=== PATIENT | male | born 1970 | race Caucasian/White ===

== ENCOUNTER 2017-10-12 18:09 | Emergency (ER) | payer OTHER ==
[~2017-10-12] VITALS: Ht 180.3 cm; Wt 80.7 kg
--- NOTE | ~2017-10-12 | EKG ---
[place] [id number] [facility] [place] [address] ELECTROCARDIOGRAM REPORT Name: GINNY MARTIN Room #: DEP Clem#: [id number] Admission: 10/12/17 Attend Phys: Discharge: 10/12/17 Date of : 68 Report #: [id number] THIS REPORT FOR: //name// [facility] ED Test Date: 2017-10-12 Test Time: 19:00:31 Pat Name: GINNY MARTIN Department: Room: Gender: M Senior Asset Manager: [id number] : 1970 Requested By: Charlie Davies Order Number: [id number] MD: Ari Salas Measurements Intervals [place] Rate: 102 P: 47 [place]: 169 QRS: -51 QRSD: 95 T: 29 QT: 353 QTc: 460 Interpretive Statements Sinus tachycardia Left anterior fascicular block No previous ECG available for comparison Electronically Signed On 10-13-2017 9:11:40 EXPERIMENTAL ELECTRONICS DEVELOPER by Ari Salas [email or web address] <ELECTRONICALLY SIGNED> By: Ari Salas MD, [facility] 10/13/17 0911 190 99 Ari Salas MD, FACC /EPI
[2017-10-12 19:17] LABS: ABSOLUTE NEUTROPHILS 5.8 thou/uL (1.4-8.2); BASOPHILS 0.6 % (0.0-2.0); EOSINOPHILS 1.5 % (0.0-3.0); HEMATOCRIT 41.5 % (42.0-52.0); HEMOGLOBIN 14.3 gm/dL (14.0-18.0); LYMPHOCYTES 19.2 % (24.0-44.0); MANUAL DIFF NO; MCH 30.9 pg (26.0-34.0); MCHC 34.5 g/dL (28.0-37.0); MCV 89.4 fL (80.0-100.0); MONOCYTES 6.8 % (1.0-8.0); PLATELET COUNT 249 thou/uL (150-400); POLYS 71.9 % (36.0-66.0); RBC 4.64 mil/uL (4.50-6.00); RDW 12.7 % (10.5-14.5); WBC 8.1 thou/uL (4.0-11.0)
[2017-10-12 19:26] LABS: ANION GAP 9 mmol/L (7-16); BUN 19 mg/dL (7-18); CALCIUM 9.5 mg/dL (8.5-10.1); CHLORIDE 100 mmol/L (98-107); CO2 28 mmol/L (21-32); GLUCOSE 118 mg/dL (74-106); POTASSIUM 3.5 mmol/L (3.5-5.1); SODIUM 137 mmol/L (136-145)
[2017-10-12 19:33] LABS: PROTIME 10.2 Seconds (9.3-11.4)
[2017-10-12 19:35] LABS: ALBUMIN 4.2 g/dL (3.4-5.0); ALKALINE PHOSPHATASE 65 U/L (46-116); SGOT 23 U/L (15-37); SGPT 36 U/L (30-65); TOTAL BILIRUBIN 0.5 mg/dL (<0.1-1.0); TOTAL PROTEIN 7.3 g/dL (6.4-8.2); TROPONIN-I < 0.04 ng/mL (<0.06)
[2017-10-12] MEDS ORDERED: ATIVAN0.5 M1 PO (20:05)
[2017-10-12 20:36] VITALS: BP 160/91
== END 2017-10-12 20:37 | disposition home or self-care (01) ==
LOC: ER 18:09
PROVIDERS: Physician Assistant
DX: F41.9 Anxiety disorder, unspecified (principal)